=== PATIENT | female | born 1985 | race African-American/Black ===

== ENCOUNTER 2023-08-20 04:56 | Emergency (ER) | payer MEDICAID ==
[~2023-08-20] VITALS: Ht 165.1 cm; Wt 57.0 kg
[2023-08-20 04:58] VITALS: BP 140/90; PULSE 88; RESP 18; TEMP 98.7; O2SAT 98
== END 2023-08-20 05:30 | disposition left against medical advice (07) ==
LOC: ER 04:56
DX: F19.10 Other psychoactive substance abuse, uncomplicated (principal)
CPT/HCPCS: 99283